=== PATIENT | male | born 2000 | race Caucasian/White ===

== ENCOUNTER 2023-01-04 16:14 | Emergency (ER) | payer BC ==
[2023-01-04 16:20] VITALS: BP 127/76; PULSE 70; RESP 16; TEMP 98.4
--- NOTE | 2023-01-04 17:40 | ED ---
General Adult HPI - General Source: patient, RN notes reviewed Mode of arrival: ambulatory Limitations: no limitations <Aneta Mccormick - Last Filed: 01/04/23 18:43> <Cali Pond - Last Filed: 01/04/23 21:05> - General Chief complaint: Extremity Injury, Upper Stated complaint: R middle finger infected Time Seen by Provider: 01/04/23 16:21 - History of Present Illness Initial comments: 22-year-old male with no significant past medical history who presents the emergency department with a chief complaint of right middle finger pain. 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 Here ports worsening pain and swelling to his right middle digit. He has not taken anything for his pain. He denies any numbness or tingling, weakness in the extremity. Denies any fever, chills. Patient reports he had something similar to his left thumb approximately 3 weeks ago for which she was given antibiotics and it resolved. (Aneta Mccormick) - Related Data Home Medications Medication Instructions Recorded Confirmed Cephalexin [Keflex] 500 mg PO Q6HR 01/04/23 01/04/23 Previous Rx's Medication Instructions Recorded Acyclovir [Zovirax] 800 mg PO TID #30 tab 01/04/23 Cephalexin [Keflex] 500 mg PO Q6HR #40 cap 01/04/23 Allergies Allergy/AdvReac Type Severity Reaction Status Date / Time ibuprofen [From Motrin] Allergy Swelling Verified 01/04/23 17:49 Review of Systems ROS Other: All systems not noted in ROS Statement are negative. <Aneta Mccormick - Last Filed: 01/04/23 18:43> ROS Other: All systems not noted in ROS Statement are negative. <Cali Pond - Last Filed: 01/04/23 21:05> ROS Statement: Those systems with pertinent positive or pertinent negative responses have been documented in the HPI. Past Medical History Past Medical History: No Reported History History of Any Multi-Drug Resistant Organisms: None Reported Past Surgical History: No Surgical Hx Reported Past Psychological History: No Psychological Hx Reported Smoking Status: Current every day smoker Past Alcohol Use History: None Reported Past Drug Use History: None Reported <Aneta Mccormick - Last Filed: 01/04/23 18:43> General Exam Limitations: no limitations General appearance: alert, in no apparent distress Head exam: Present: atraumatic, normocephalic, normal inspection Eye exam: Present: normal appearance, PERRL, EOMI. Absent: scleral icterus, conjunctival injection, periorbital swelling ENT exam: Present: normal exam, mucous membranes moist Neck exam: Present: normal inspection. Absent: tenderness, meningismus, lymphadenopathy Respiratory exam: Present: normal lung sounds bilaterally. Absent: respiratory distress, wheezes, rales, rhonchi, stridor Cardiovascular Exam: Present: regular rate, normal rhythm, normal heart sounds. Absent: systolic murmur, diastolic murmur, rubs, gallop, clicks GI/Abdominal exam: Present: soft, normal bowel sounds. Absent: distended, tenderness, guarding, rebound, rigid Extremities exam: Present: normal inspection, full ROM, normal capillary refill. Absent: tenderness, pedal edema, joint swelling, calf tenderness Right Hand Wrist exam: Present: other (3rd digit with limited ROM secondary to pain and swelling at DIP joint, 2+ pulses, distal NVI, no surrounding redness, erythema, small lesion on dorsal surface near nailbed ). Absent: normal inspection Back exam: Present: normal inspection Neurological exam: Present: alert, oriented X3, CN II-XII intact Psychiatric exam: Present: normal affect, normal mood Skin exam: Present: warm, dry, intact, normal color. Absent: rash <Aneta Mccormick - Last Filed: 01/04/23 18:43> Course Vital Signs 01/04/23 16:16 Temperature 98.4 F Pulse Rate 70 Respiratory 16 Rate Blood Pressure 127/76 O2 Sat by Pulse 98 Oximetry Medical Decision Making <Aneta Mccormick - Last Filed: 01/04/23 18:43> <Cali Pond - Last Filed: 01/04/23 21:05> - Medical Decision Making Was pt. sent in by a medical professional or institution (Dr. PA, MOTEL FRONT DESK ATTENDANT, urgent care, hospital, or assisted...) When possible be specific @ -[No] Did you speak to anyone other than the patient for history (EMS, parent, family, police, friend...)? What history was obtained from this source @ -[No] Did you review nursing and triage notes (agree or disagree)? Why? @ -[I reviewed and agree with nursing and triage notes] Were old charts reviewed (outside hosp., previous admission, EMS record, old EKG, old radiological studies, urgent care reports/EKG's, assisted records)? Report findings @ -[No old charts were reviewed] Differential Diagnosis (chest pain, altered mental status, abdominal pain women, abdominal pain men, vaginal bleeding, weakness, fever, dyspnea, syncope, headache, dizziness, GI bleed, back pain, seizure, CVA, palpatations, mental health, musculoskeletal)? @ -[not applicable] EKG interpreted by me (3pts min.). @ -[As above] X-rays interpreted by me (1pt min.). @ -Right hand x-ray negative for any evidence of osteomyelitis CT interpreted by me (1pt min.). @ -[None done] U/S interpreted by me (1pt. min.). @ -[None done] What testing was considered but not performed or refused? (CT, X-rays, U/S, labs)? Why? @ -[None] What meds were considered but not given or refused? Why? @ - Patient offered Tylenol however he declined.Did you discuss the management of the patient with other professionals (professionals i.e. , PA, MOTEL FRONT DESK ATTENDANT, lab, RT, psych nurse, director social, radioisotope technician, teacher, development officer, showcase maker)? Give summary @ -[No] Was smoking cessation discussed for >3mins.? @ -[No] Was critical care preformed (if so, how long)? @ -[No] Were there social determinants of health that impacted care today? How? (Homelessness, low income, unemployed, alcoholism, drug addiction, transportation, low edu. Level, literacy, decrease access to med. care, halfway, rehab)? @ -[No] Was there de-escalation of care discussed even if they declined (Discuss DNR or withdrawal of care, Hospice)? DNR status @ -[No] What co-morbidities impacted this encounter? (DM, HTN, Smoking, COPD, CAD, Cancer, CVA, ARF, Chemo, Hep., AIDS, mental health diagnosis, sleep apnea, morbid obesity)? @ -[None] Was patient admitted / discharged? Hospital course, mention meds given and route, prescriptions, significant lab abnormalities, going to OR and other pertinent info. @ -Discharged. This is a 22-year-old male who presents the emergency department with back pain. Patient had a thorough history and physical exam performed while in the ED. Physical exam is essentially unremarkable. Heart rate regular rate and rhythm, lungs clear to auscultation bilaterally abdomen is soft and non-tender. x-ray negative. Patient offered NSAIDs however declined. I discussed the results in detail with the patient's mother who verbalized understanding and all questions and concerns were addressed. Patient prescribed acyclovir and Keflex. Patient was discharged in stable condition with recommended close follow-up with PCP in 1-2 days. Encouraged to follow-up with Dr. Plunkett's office within 1 week Return precautions were discussed at length. Case discussed with JOSUE Tyson who agrees with plan of care Undiagnosed new problem with uncertain prognosis? @ -[No] Drug Therapy requiring intensive monitoring for toxicity (Heparin, Nitro, Insulin, Cardizem)? @ -[No] Were any procedures done? @ -[No] Diagnosis/symptom? @ -Cellulitis VS. Herpatic Eulalio Acute, or Chronic, or Acute on Chronic? @ -acute Uncomplicated (without systemic symptoms) or Complicated (systemic symptoms)? @ -uncomplicated Side effects of treatment? @ -[No] Exacerbation, Progression, or Severe Exacerbation? @ -[No] Poses a threat to life or bodily function? How? (Chest pain, [place], [place], pneumonia, PE, COPD, DKA, ARF, appy, cholecystitis, CVA, Diverticulitis, Homicidal, Suicidal, threat to staff... and all critical care pts) @ -low likelihood (Aneta Mccormick) SUPERVISORY NOTE: I have reviewed all documentation, results, and performed the MDM in its entirety, which constitutes a substantive portion of the visit. I did evaluate patient well. Patient does have some erythema and swelling of the middle finger DIP. On the dorsal side there is a vesicular-like lesion. There is concern for herpetic eulalio and patient will be covered with this with recommendation to follow-up with orthopedics. (Cali Pond) Disposition Is patient prescribed a controlled substance at d/c from ED?: No Time of Disposition: 18:00 <Aneta Mccormick - Last Filed: 01/04/23 18:43> <Cali Pond - Last Filed: 01/04/23 21:05> Clinical Impression: Pain of right middle finger Disposition: HOME SELF-CARE Condition: Stable Additional Instructions: Please return to the nearest emergency department if symptoms worsen or persist. Prescriptions: Cephalexin [Keflex] 500 mg PO Q6HR #40 cap Acyclovir [Zovirax] 800 mg PO TID #30 tab Referrals: None,Stated [Primary Care Provider] - 1-2 days Margarita Plunkett DO [Doctor of Osteopathic Medicine] - 1-2 days
--- NOTE | 2023-01-04 18:05 | XR ---
EXAMINATION TYPE: XR hand limited RT DATE OF EXAM: 01/04/2023 COMPARISON: NONE HISTORY: Third finger infection TECHNIQUE: 2 views FINDINGS: There is some soft tissue swelling around the middle finger. I see no fracture nor dislocat ion. Joint spaces are fairly normal. There are no erosions. IMPRESSION: Soft tissue swelling. No fracture.
== END 2023-01-04 18:55 | disposition home or self-care (01) ==
LOC: EC 16:14
DX: M79.644 Pain in right finger(s) (principal); F17.200 Nicotine dependence, unspecified, uncomplicated; Z88.6 Allergy status to analgesic agent
CPT/HCPCS: 99283